=== PATIENT | female | born 1935 | race Asian ===

== ENCOUNTER 2016-08-27 10:37 | Emergency (ER) | payer SELFPAY ==
[2016-08-27] MEDS ORDERED: ASPIRIN 81 MG TABLET, CHEWABLE PO ONE (11:06)
--- NOTE | 2016-08-27 11:06 | ER Document Report ---
ED Medical Screen (RME) - General Time seen by provider: 10:57 Mode of Arrival: Wheelchair TRAVEL OUTSIDE OF THE [place] 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 Pain shoots down her legs. She denies chest pain or shortness of breath, but does complain of weakness, and decreased appetite. States she has had a fever, but denies cough or congestion. No nausea vomiting diarrhea. Patient does state that she is having some dysuria, voiding about every 2 hours. She also states she has had problems with her heart in the past. Denies other medical history. I have greeted and performed a rapid initial assessment of this patient. A comprehensive ED assessment and evaluation of the patient, analysis of test results and completion of the medical decision making process will be conducted by additional ED providers. (DANE BELTRAN) - Related Data Allergies/Adverse Reactions: No Known Allergies Allergy (Unverified 08/27/16 10:55) Past Medical History - Past Medical History Cardiac Medical History: Reports: Hx Atrial Fibrillation - Immunizations Hx Diphtheria, Pertussis, Tetanus Vaccination: - UNKNOWN Physical Exam - Cardiovascular Rhythm: Regular Heart sounds: Normal auscultation Doctor's Discharge - Discharge Clinical Impression: Urinary tract infection Qualifiers: Urinary tract infection type: site unspecified Hematuria presence: without hematuria Qualified Code(s): N39.0 - Urinary tract infection, site not specified Condition: Good Disposition: HOME, SELF-CARE Instructions: Urinary Tract Infection ([facility]) Additional Instructions: Please take antibiotics as prescribed. Please follow-up with physician provided Prescriptions: Ibuprofen [Motrin 600 Mg Tablet] 600 mg PO TID #10 tablet Nitrofurantoin/Nitrofuran Mac [Macrobid 100 mg Capsule] 1 tab PO BID #20 capsule Referrals: JEANIE RASHEED MD [COMMUNITY BASED STAFF] - Follow up as needed [facility] [Provider Group] - Follow up as needed Print Language: Mandarin
[2016-08-27] MEDS ORDERED: ACETAMINOPHEN 325 MG TABLET PO ONE (13:20)
[2016-08-27] MEDS ORDERED: LIDOCAINE 5% (700 MG) TRANSDERMAL ADH..PATCH TP ONE (13:20)
[2016-08-27 14:24] LABS: APPEARANCE,URINE SLIGHTLY-CLOUDY; BILIRUBIN,URINE NEGATIVE (NEGATIVE); CALCIUM OXALATE CRYSTALS,URINE TOO NUMEROUS TO CNT /HPF; GLUCOSE, URINE 50 mg/dL (NEGATIVE); KETONES,URINE NEGATIVE (NEGATIVE); LEUKOCYTE ESTERASE,URINE SMALL (NEGATIVE); NITRITE,URINE POSITIVE (NEGATIVE); PROTEIN,URINE NEGATIVE (NEGATIVE); URINE SPECIFIC GRAVITY 1.024; UROBILINOGEN,URINE NEGATIVE mg/dL (<2.0)
[2016-08-27] MEDS ORDERED: CEFTRIAXONE INJ 1000 MG VIAL IM ONE (14:39)
--- NOTE | 2016-08-27 15:29 | ER Document Report ---
ED General - General Chief Complaint: Back Pain Stated Complaint: BACK PAIN Mode of Arrival: Wheelchair TRAVEL OUTSIDE OF THE [place] 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 Family patient's coming in for evaluation of back pain ongoing for the last 4 months dysuria and diffuse body pain states that she has infection. Patient had laboratory studies ordered of front in triage however refused any blood work. Patient did urinate in a cup for us for a urinalysis. Otherwise patient has not taken anything for pain no fevers no chills. - Related Data Allergies/Adverse Reactions: No Known Allergies Allergy (Unverified 08/27/16 10:55) Past Medical History - Social History Smoking Status: Never Smoker Chew tobacco use (# tins/day): No Frequency of alcohol use: None Drug Abuse: None Family History: Reviewed & Not Pertinent Patient has suicidal ideation: No Patient has homicidal ideation: No - Past Medical History Cardiac Medical History: Reports: Hx Atrial Fibrillation Renal/ Medical History: Denies: Hx Peritoneal Dialysis - Immunizations Hx Diphtheria, Pertussis, Tetanus Vaccination: - UNKNOWN Review of Systems - Review of Systems Constitutional: Other - Myalgias dysuria low back pain EENT: No symptoms reported Cardiovascular: No symptoms reported Respiratory: No symptoms reported Gastrointestinal: No symptoms reported Genitourinary: No symptoms reported Female Genitourinary: No symptoms reported Musculoskeletal: No symptoms reported Skin: No symptoms reported Hematologic/Lymphatic: No symptoms reported Neurological/Psychological: No symptoms reported -: Yes All other systems reviewed and negative Physical Exam - Vital signs Vitals: Temp Pulse Resp BP Pulse Ox 98.2 F 94 14 130/54 H 100 08/27/16 10:40 08/27/16 10:40 08/27/16 10:40 08/27/16 10:40 08/27/16 10:40 Interpretation: Normal - General General appearance: Appears well, Alert - HEENT Head: Normocephalic, Atraumatic Eyes: Normal Pupils: PERRL - Respiratory Respiratory status: No respiratory distress Chest status: Nontender Breath sounds: Normal Chest palpation: Normal - Cardiovascular Rhythm: Regular Heart sounds: Normal auscultation Murmur: No - Abdominal Inspection: Normal Distension: No distension Bowel sounds: Normal Tenderness: Nontender Organomegaly: No organomegaly - Back Back: Normal, Nontender - Extremities General upper extremity: Normal inspection, Nontender, Normal color, Normal ROM , Normal temperature General lower extremity: Normal inspection, Nontender, Normal color, Normal ROM , Normal temperature, Normal weight bearing. No: Qi's sign - Neurological Neuro grossly intact: Yes Cognition: Normal Orientation: AAOx4 Michaela Coma Scale Eye Opening: Spontaneous [place] Coma Scale Verbal: Oriented [place] Coma Scale Motor: Obeys Commands Michaela Coma Scale Total: 15 Speech: Normal Motor strength normal: LUE, RUE, LLE, RLE Sensory: Normal - Psychological Associated symptoms: Normal affect, Normal mood - Skin Skin Temperature: Warm Skin Moisture: Dry Skin Color: Normal Course - Re-evaluation Re-evalutation: 08/28/16 15:40 Patient is urinalysis does show signs of infection. We were able to give the patient follow-up instructions to the [facility]. Patient will be discharged home. - Vital Signs Vital signs: Temp Pulse Resp BP Pulse Ox 97.5 F 64 16 107/42 L 99 08/27/16 15:30 08/27/16 15:30 08/27/16 15:30 08/27/16 15:30 08/27/16 15:30 - Laboratory Laboratory results interpreted by me: 08/27/16 11:46 Urine Glucose (UA) 50 H Urine Blood MODERATE H Urine Nitrite POSITIVE H Ur Leukocyte Esterase SMALL H Discharge - Discharge Clinical Impression: Urinary tract infection Qualifiers: Urinary tract infection type: site unspecified Hematuria presence: without hematuria Qualified Code(s): N39.0 - Urinary tract infection, site not specified Condition: Good Disposition: HOME, SELF-CARE Instructions: Urinary Tract Infection ([facility]) Additional Instructions: Please take antibiotics as prescribed. Please follow-up with physician provided Prescriptions: Ibuprofen [Motrin 600 Mg Tablet] 600 mg PO TID #10 tablet Lidocaine [Lidoderm 5% (700 mg) Transdermal Patch] 1 patch TP DAILY #10 adh..patch Nitrofurantoin/Nitrofuran Mac [Macrobid 100 mg Capsule] 1 tab PO BID #20 capsule Referrals: [facility] [Provider Group] - Follow up as needed JEANIE RASHEED MD [COMMUNITY BASED STAFF] - Follow up as needed Print Language: Mandarin
[2016-08-27 15:33] VITALS: BP 107/42
== END 2016-08-27 15:30 | disposition home or self-care (01) ==
LOC: ER 10:37
DX: N39.0 Urinary tract infection, site not specified (principal); M54.9 Dorsalgia, unspecified; I48.91 Unspecified atrial fibrillation
CPT/HCPCS: 99284; 96372; 81001; 71010; J0696